=== PATIENT | male | born 1955 | race Two or more races ===

== ENCOUNTER 2021-04-23 08:53 | Outpatient (REF) | payer MEDICARE, MEDICAID, SELFPAY ==
[2021-04-23 13:38] LABS: Basophils Percent Auto 0.3 % (0-2); Eosinophils Absolute Auto 0.2 X10*3/uL (0.0-0.4); Eosinophils Percent Auto 1.5 % (0-4); Hematocrit 45.5 % (42.0-52.0); Hemoglobin 14.7 g/dl (14.0-18.0); Imm Gran Abs Auto 0.03 X10*3/uL (0.00-0.03); Imm Gran Pct Auto 0.3 % (0.0-0.4); Lymphocytes Absolute Auto 2.8 X10*3/uL (1.2-4.9); Lymphocytes Percent Auto 23.9 % (20-40); MANUAL DIFF FLAG SCAN; Mean Corpuscular HGB Conc 32.3 g/dl (31.0-36.0); Mean Corpuscular Hemoglobin 27.8 pg (27.0-33.0); Monocytes Absolute Auto 0.9 X10*3/uL (0.1-1.2); Monocytes Percent Auto 7.3 % (2-11); Neutrophils Absolute Auto 7.9 x10*3/uL (2.0-8.3); Neutrophils Percent Auto 66.7 % (45-73); PLT CLUMP 1; Red Blood Count 5.29 X10*6/uL (4.60-5.80); Red Cell Distribution Width 13.1 % (11.0-16.0); SCAN SMEAR FLAG 1; White Blood Count 11.8 X10*3/uL (4.8-10.8)
[2021-04-23 13:50] LABS: Alanine Aminotransferase 13 U/L (0-40); Albumin Level 3.9 g/dL (3.5-5.0); Alkaline Phosphatase 120 U/L (39-117); Anion Gap 14 (12-20); Aspartate Amino Transferase 15 U/L (5-37); Bilirubin Total 0.6 mg/dL (0.0-1.0); Blood Urea Nitrogen 15 mg/dL (9-16); Calcium 9.5 mg/dL (8.4-10.2); Carbon Dioxide 27 mmol/L (22-29); Chloride 106 mmol/L (96-108); Cholesterol 189 mg/dL; Estimated Glomerular Filt Rate > 60; Glucose Fasting 100 mg/dL (60-99); HDL Cholesterol 38 mg/dL; LDL Cholesterol Calculated 123 mg/dl; Potassium 4.5 mmol/L (3.3-5.1); Sodium 142 mmol/L (135-145); Total Protein 7.6 g/dL (6.5-8.0); Triglycerides 143 mg/dL
[2021-04-23 14:02] LABS: Estimated Average Glucose 126 mg/dL
[2021-04-23 14:05] LABS: SLIDE REVIEW VERIFIED
[2021-04-23 14:13] LABS: Prostate Specific Antigen Scr 1.97 ng/mL (<0.05-4.0); TSH reflex Free T4 1.24 uIU/mL (0.32-4.0)
[2021-04-23 14:15] LABS: Amphetamine Screen Urine Not Detected (Not Detect)
[2021-04-23 14:18] LABS: Creatinine Urine 231.15 mg/dL; Microalbum/Creatinine Ratio Ur 33.7 ug/mg cr
[2021-04-23 14:33] LABS: Folate 15.2 ng/mL (> or = 4.0); Vitamin B12 235 pg/mL (200-900)
[2021-04-23 18:15] LABS: Amphetamine Screen Urine Not Detected (Not Detect); Barbiturates, Urine Not Detected (Not Detect); Benzodiazepines Screen Urine Not Detected (Not Detect); Cannabinoid Screen Urine POSITIVE (Not Detect); Cocaine Screen Urine Not Detected (Not Detect); Fentanyl, urine Not Detected (Not Detect); Opiate Screen Urine Not Detected (Not Detect); Phencyclidine Screen Urine Not Detected (Not Detect)
[2021-04-28 22:56] LABS: Vitamin D 25-OH, D2 <4 ng/mL; Vitamin D 25-OH, D3 13 ng/mL; Vitamin D 25-OH, Total 13 ng/mL (30-100)
[2021-05-01 07:44] LABS: Hydromorphone, Ur NEGATIVE; Morphine, Ur NEGATIVE; Oxycodone GC/MS Note NEGATIVE; Oxymorphone, Ur NEGATIVE
[2021-05-01 07:45] LABS: Alphahydroxymidazolam,GCMS Ur NEGATIVE; Alphahydroxytriazolam, GCMS Ur NEGATIVE; Alprazolam, GCMS Urine NEGATIVE; Aminoclonazepam, GCMS Urine NEGATIVE; Flurazepam Metabolite,GCMS Ur NEGATIVE; Lorazepam GCMS Urine NEGATIVE; Nordiazepam, GCMS Urine NEGATIVE; Norhydrocodone, Ur NEGATIVE; Noroxycodone, Ur NEGATIVE; Oxazepam, GCMS Urine NEGATIVE; Temazepam, GCMS Urine NEGATIVE
[2021-05-02 07:12] LABS: Codeine, Ur NEGATIVE; Hydrocodone, Ur NEGATIVE; Oxycodone, Ur NEGATIVE
== END 2021-04-23 08:54 | disposition home or self-care (01) ==
LOC: HO.LAB 08:53
PROVIDERS: Visit Provider Nurse Practitioner Acute Care
DX: F11.90 Opioid use, unspecified, uncomplicated (principal); I10 Essential (primary) hypertension; E66.9 Obesity, unspecified; F41.9 Anxiety disorder, unspecified
CPT/HCPCS: 80053; 80061; 80307; 80346; 80364; 80365; 82043; 82306; 82607; 82746; 83036; 84153; 84443; 85025

== ENCOUNTER 2021-04-23 14:18 | Emergency (ER) | payer MEDICARE, MEDICAID, SELFPAY ==
--- NOTE | ~2021-04-23 | CT_ITS ---
EXAMINATION: CT HEAD WITHOUT CONTRAST CLINICAL INFORMATION: Hypertension. COMPARISON: No relevant prior imaging. TECHNIQUE: Contiguous axial imaging was performed from the skull base to vertex without intravenous administration of contrast. This CT examination was performed using dose optimization techniques as appropriate, variously including the following: *Automated exposure control *Adjustment of mA and/or kV according to patient size (this includes techniques or standardized protocols for targeted exams where dose is matched to indication/reason for exam; i.e. extremities or head) *Use of iterative reconstruction technique DLP: 684 mGy-cm FINDINGS: There is no acute intracranial hemorrhage or abnormal extra-axial collection. No intracranial mass effect or midline shift. Lateral and third ventricles are normal. No hydrocephalus. Singh-white matter differentiation is preserved and there is no evidence of acute territorial infarct. The calvarium and skull base are intact. The left mastoid air cells and middle ear cavity are completely opacified. No active paranasal sinus disease. The patient's right vitreous chamber is hyperdense indicating likelihood of a prior silicone oil injection. CT/CT head/brain wo con IMPRESSION: Unremarkable examination in that there is no evidence of acute territorial infarct or hemorrhage. No intracranial mass effect or hydrocephalus.
[2021-04-23 14:22] VITALS: BP 154/109; PULSE 103; RESP 18; TEMP 36.8; O2SAT 96; BMI 42.9
--- NOTE | 2021-04-23 17:22 | ECG_ITS ---
Test Reason : HTN Blood Pressure : / mmHG Vent. Rate : 082 BPM Atrial Rate : 082 BPM P-R Int : 190 ms QRS Dur : 102 ms QT Int : 364 ms P-R-T Axes : 038 -06 021 degrees QTc Int : 425 ms Normal sinus rhythm Normal ECG No previous ECGs available Referred By: Bety Chirinos Electronically Signed By:MARK CALLE MD
[2021-04-23 17:30] VITALS: BP 181/107; PULSE 81; RESP 18; TEMP 37.1; O2SAT 95
[2021-04-23] MEDS: lisinopriL 20 MG TABLET PO (17:36)
--- NOTE | 2021-04-23 17:38 | PC.NURSE ---
Addendum entered by Jazlyn Vergara 04/23/21 17:49: No unilateral deficits noted. Original Note: Patient is alert and oriented x3, pupils equal in size 3 mm, reactive to accommodation. Pt reports headache improving-04/23 at present. BP 181/107-Lisinopril 20 mg administered with water-pt denies issues swallowing.
--- NOTE | 2021-04-23 17:39 | ED_ITS ---
HPI - General Adult General Chief complaint: General Medical Stated complaint: high blood pressure Time Seen by Provider: 04/23/21 17:15 Source: patient Mode of arrival: ambulatory Limitations: no limitations History of Present Illness HPI narrative: 65-year-old male with a history of hypertension, osteoarthritis, depression, BPH, macular degeneration bilateral eyes (R>L), obesity, here with reports of abnormal blood pressure. Patient tells me that for the last 2 months he has not been on his lisinopril 20 mg. He ran out of his medication and did not have a primary care doctor to refill his blood pressure medicine. He was seen today by a primary care doctor for initial visit and was noted to have blood pressure of 180/100 and was referred into the emergency department for further evaluation due to reports of headache and vision changes. Patient denies any chest pain, shortness of breath, vomiting, dizziness. Patient tells me that he has had intermittent headaches over the last few months. He tells me that he does have bilateral vision loss which he has had for greater than 2 years. Patient tells me that he has bilateral macular degeneration in both eyes. 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 He does not like his vision is worse in the last 1-2 months. Related Data Home Medications Medication Instructions Recorded Confirmed acetaminophen 325 mg capsule 650 mg PO Q6H PRN 04/23/21 Previous Rx's Medication Instructions Recorded atropine 1 % eye drops 1 drp PO DAILY #5 ml 04/23/21 citalopram 40 mg tablet 40 mg PO DAILY #90 tab 04/23/21 lisinopril 20 mg tablet 20 mg PO DAILY #90 tab 04/23/21 prednisolone acetate 1 % eye 1 drp OPHTHALMIC (EYE) Q1H #5 ml 04/23/21 drops,suspension tamsulosin 0.4 mg capsule 0.4 mg PO BEDTIME #90 cap 04/23/21 tramadol 50 mg tablet 25 mg PO DAILY PRN #14 tab 04/23/21 Allergies Allergy/AdvReac Type Severity Reaction Status Date / Time No Known Allergies Allergy Verified 04/23/21 14:21 Review of Systems Review of Systems: Yes all other systems are reviewed and are negative Constitutional: Constitutional: Reports no additional constitutional complaints, Denies body ache(s), Denies chills, Denies fever(s), Reports headache(s) and Denies weakness Eyes: Eyes: Reports no additional eye complaints, Reports blurry vision and Denies change in vision ENT: Reports system reviewed and no additional complaints, except as documented, Denies dizziness, Reports headache(s), Denies nasal congestion, Denies nasal discharge and Denies neck pain Cardiovascular: Cardiovascular: Reports no additional cardiovascular complaints, Denies chest pain, Denies leg edema and Denies dyspnea Respiratory: Respiratory: Reports no additional respiratory complaints, Denies cough and Denies dyspnea Gastrointestinal: Gastrointestinal: Reports no additional gastrointestinal complaints, Denies abdominal pain, Denies diarrhea, Denies nausea and Denies vomiting Genitourinary: Genitourinary: Denies urinary incontinence Musculoskeletal: Musculoskeletal: Reports no additional musculoskeletal complaints, Denies back pain, Denies arthralgias, Denies joint swelling, Denies neck pain, Denies numbness and Denies tingling Integumentary/Breasts: Skin/Breast: Reports system reviewed and no additional complaints, except as docu and Denies rash Neurologic: Reports system reviewed and no additional complaints, except as documented, Denies dizziness, Reports headache(s), Denies numbness, Denies tingling and Denies weakness PMFSH Past Medical History Attestation statement: The following information was validated with the patient. Source: old records reviewed and nursing notes reviewed Medical History Arthritis of right knee BPH (benign prostatic hyperplasia) Herniated lumbar disc without myelopathy Hypertension Macular degeneration Major depression, recurrent Surgical History History of retinal detachment Family History Family History Mother No problems noted. Father No problems noted. Social History Social History Housing: Apartment Patient Tobacco Use Status: Former Tobacco user Tobacco use type: Cigarette e-Cigarette/Vaping Use: Never Used Second Hand Smoke Exposure: No Advance Directives: No Advance Directives Information Provided: No service: No Current occupational status: retired Cognitive needs: No Hearing needs: No Vision needs: No Physical Exam ED Vital Signs: Vital Signs - 24 hr 04/23/21 14:22 04/23/21 17:30 04/23/21 19:10 Temperature 98.3 F 98.7 F Pulse Rate 103 H 81 80 Respiratory Rate 18 18 20 Blood Pressure 154/109 H 181/107 H 175/99 H Pulse Oximetry 96 95 95 BMI result Body Mass Index 42.9 Const General: cooperative, healthy appearing, comfortable and no acute distress Orientation/consciousness: patient oriented x3 Limitations: no limitations HENMT Head: Yes normal to inspection Ears: hearing grossly normal bilaterally and TM's normal bilaterally General nose exam: Normal external nose present Face and sinus: Yes normal facial exam Mouth: Normal oral and palatal mucosa present Throat: Yes posterior oropharynx normal and Yes tonsils normal Eyes Other: Right eye dilated-nonreactive pupil with vision loss Left eye normal pupil 3mm reactive General: appearance normal, both eyes and all related structures Neck Neck: Yes normal visual inspection, Yes full ROM, Yes no lymphadenopathy and Yes no meningeal signs Chest Chest palpation & inspection: normal inspection of the chest Resp Effort & Inspection: normal respiratory effort Auscultation: clear to auscultation bilaterally Cardio Rate: regular rate Rhythm: regular rhythm Peripheral pulses: Peripheral pulses 2+ throughout GI Inspection: Yes normal to inspection Palpation (GI): Soft to palpation and nontender General: Yes no CVA tenderness Back/Spine/Pelvis Back: no CVA tenderness Thoracic/Lumbar Spine: thoracic and lumbar spine normal to inspection Skin General skin exam: no rashes or lesions noted Neuro General: patient oriented x3, moves all extremities and no meningeal signs Cranial nerves: Yes CN's II-XII intact bilaterally, Yes Bilaterally intact EOM present, Yes Nystagmus not present, Yes Normal facial strength present, Yes Midline tongue present and Yes Normal gag reflex present Cognition (Neuro): normal cognition Gait exam (Neuro): Normal gait present Motor exam (neuro): 5/5 motor strength present throughout Sensory Exam: Normal double simultaneous stimulation for sensation Extrem General: Yes normal to inspection, Yes no pedal edema and Yes no calf tenderness Course Course Course Narrative: 65-year-old male with a known history of high blood pressure noncompliant with medications for greater than 2 months presents today from primary care office with concern for symptomatic hypertension. Patient has a normal neurological exam. He does tell me that he has vision loss in both of his eyes secondary to underlying macular degeneration, retinal detachment of the right eye and history of tuberculosis in the right eye. He tells me that his vision is at his baseline and he has had new changes in his vision and greater than 2 years. He does report intermittent headaches with no associated vomiting, dizziness, behavior change. On arrival the patient is hypertensive 180/100. He had screening labs done this morning by his primary care doctor which are available to for review and show normal renal function, additional CBC, thyroid panel, cholesterol panel. Patient has no reports of chest pain or shortness of breath so I do not feel like it troponin is needed. His EKG is normal sinus rhythm. Due to concern for symptomatic hypertension will check CT head to rule out intracranial hemorrhage. Will give patient has his dose of lisinopril and reassess his blood pressure 2023-BP 162/91. CT head shows no acute finding. EKG shows normal sinus rhythm in with no ischemic changes. Patient feels well. Recommend that he start his lisinopril tomorrow. This was already sent to the pharmacy by his primary care doctor. Reviewed worrisome signs and symptoms of when to return to the em ergency department. Comfortable discharge home. Medical Decision Making Medical Records Medical records reviewed: Yes I reviewed the patient's medical records. Lab Data Lab results reviewed: Yes I reviewed the patient's lab results. Imaging Data CT scan - head: Attestation: I personally reviewed and interpreted this imaging study as follows: Radiologist's impression: FINDINGS: There is no acute intracranial hemorrhage or abnormal extra-axial collection. No intracranial mass effect or midline shift. Lateral and third ventricles are normal. No hydrocephalus. Singh-white matter differentiation is preserved and there is no evidence of acute territorial infarct. The calvarium and skull base are intact. The left mastoid air cells and middle ear cavity are completely opacified. No active paranasal sinus disease. The patient's right vitreous chamber is hyperdense indicating likelihood of a prior silicone oil injection. ? CT/CT head/brain wo con IMPRESSION: Unremarkable examination in that there is no evidence of acute territorial infarct or hemorrhage. No intracranial mass effect or hydrocephalus. ECG Data Attestation: I personally reviewed and interpreted this ECG as follows: Interpretation: Normal sinus rhythm with rate 82, normal PA, normal QRS, normal QT Discharge Plan Discharge Clinical Impression: Hypertension Patient Disposition: Home, Self-Care Instructions: Hypertension (ED) Additional Instructions: Start taking your blood pressure medications Follow a low-sodium diet Limit caffeine intake Follow-up with your marketing project specialist in regards to your eye complaints Follow-up with primary care doctor for repeat blood pressure in 1 week Prescriptions: No Action acetaminophen 325 mg capsule 650 mg PO Q6H PRN0RF atropine 1 % drops 1 drp PO DAILY Qty: 5 0RF prednisolone acetate 1 % drops,suspension 1 drp ophthalmic (eye) Q1H Qty: 5 0RF lisinopril 20 mg tablet 20 mg PO DAILY Qty: 90 2RF citalopram 40 mg tablet 40 mg PO DAILY Qty: 90 2RF tamsulosin 0.4 mg capsule 0.4 mg PO BEDTIME Qty: 90 2RF tramadol 50 mg tablet 25 mg PO DAILY PRN (Reason: pain) Qty: 14 0RF Referrals: Charlie Becerra FNP-C [Primary Care Provider] - 1 week (for repeat blood pressure ) Interventions: ED Discharge Assessment Last Done: 04/23/21 21:08 Discharge Date/Time: 04/23/21 21:10
[2021-04-23 19:10] VITALS: BP 175/99; PULSE 80; RESP 20; O2SAT 95
== END 2021-04-23 21:10 | disposition home or self-care (01) ==
PROVIDERS: Emergency Provider Emergency Medicine Emergency Medical Services; PCP Nurse Practitioner Family
DX: I10 Essential (primary) hypertension (principal); H35.30 Unspecified macular degeneration; Z91.14 Patient's other noncompliance with medication regimen; Z12.5 Encounter for screening for malignant neoplasm of prostate
CPT/HCPCS: 70450; 80053; 80061; 80307; 80346; 80364; 80365; 82043; 82306; 82607; 82746; 83036; 84153; 84443; 85025; 93005; 99284

== ENCOUNTER 2022-05-28 10:02 | Outpatient (REF) | payer MEDICARE, MEDICAID, SELFPAY ==
[2022-05-28 10:16] LABS: MANUAL DIFF FLAG NO
[2022-05-28 10:54] LABS: Basophils Percent Auto 0.4 % (0-2); Eosinophils Absolute Auto 0.2 X10*3/uL (0.0-0.4); Eosinophils Percent Auto 1.9 % (0-4); Hematocrit 43.8 % (42.0-52.0); Hemoglobin 14.2 g/dl (14.0-18.0); Imm Gran Abs Auto 0.04 X10*3/uL (0.00-0.03); Imm Gran Pct Auto 0.4 % (0.0-0.4); Lymphocytes Absolute Auto 2.6 X10*3/uL (1.2-4.9); Lymphocytes Percent Auto 25.4 % (20-40); Mean Corpuscular HGB Conc 32.4 g/dl (31.0-36.0); Mean Corpuscular Hemoglobin 27.7 pg (27.0-33.0); Mean Corpuscular Volume 85.4 fL (80.0-98.0); Mean Platelet Volume 9.8 fL (9.4-12.4); Monocytes Absolute Auto 0.9 X10*3/uL (0.1-1.2); Monocytes Percent Auto 8.9 % (2-11); Neutrophils Absolute Auto 6.5 x10*3/uL (2.0-8.3); Platelet Count 306 X10*3/uL (160-400); Red Blood Count 5.13 X10*6/uL (4.60-5.80); Red Cell Distribution Width 13.1 % (11.0-16.0); White Blood Count 10.3 X10*3/uL (4.8-10.8)
[2022-05-28 12:00] LABS: Alanine Aminotransferase 12 U/L (0-40); Albumin Level 3.9 g/dL (3.5-5.0); Alkaline Phosphatase 110 U/L (39-117); Anion Gap 13 (12-20); Aspartate Amino Transferase 11 U/L (5-37); Bilirubin Total 0.5 mg/dL (0.0-1.0); Blood Urea Nitrogen 19 mg/dL (9-16); Calcium 8.9 mg/dL (8.4-10.2); Carbon Dioxide 27 mmol/L (22-29); Chloride 108 mmol/L (96-108); Cholesterol 181 mg/dL; Estimated Glomerular Filt Rate > 60; Glucose Fasting 106 mg/dL (60-99); HDL Cholesterol 32 mg/dL; LDL Cholesterol Calculated 119 mg/dl; Potassium 4.6 mmol/L (3.3-5.1); Sodium 143 mmol/L (135-145); Total Protein 7.2 g/dL (6.5-8.0); Triglycerides 150 mg/dL
[2022-05-28 12:09] LABS: Folate 11.3 ng/mL (> or = 4.0); TSH reflex Free T4 1.49 uIU/mL (0.32-4.0); Vitamin B12 287 pg/mL (200-900)
== END 2022-05-28 10:03 | disposition home or self-care (01) ==
LOC: HO.LAB 10:02
PROVIDERS: PCP Nurse Practitioner Family; Visit Provider Nurse Practitioner Family
DX: I10 Essential (primary) hypertension (principal); E55.9 Vitamin D deficiency, unspecified
CPT/HCPCS: 36415; 80053; 80061; 82306; 82607; 82746; 84443; 85025

== ENCOUNTER 2022-12-01 09:09 | Outpatient (AMB) | payer MEDICARE, MEDICAID, SELFPAY ==
[2022-12-01 09:10] VITALS: BP 168/96; PULSE 92; O2SAT 97; BMI 39.4
--- NOTE | 2022-12-01 09:10 | AM.OFFVISMDC ---
Intake Vital Signs 12/01/22 09:10 12/01/22 09:54 Height 5 ft 4 in Weight 229 lb 4.492 oz BMI 39.4 BP 168/96 H 160/100 H Blood Pressure Location Rt brachial Lt brachial Position Sitting Sitting Pulse 92 Pulse Source Pulse Oximeter Temp Source Skin Pulse Oximetry (%) 97 Oxygen Delivery Method Room Air Intake Visit Reasons: awv Intake Note: Patient is here for an Annual Wellness Visit. Allergies No Known Allergies Allergy (Verified 12/01/22 09:35) Medication List - Last Reconciled 12/01/22 by [facility] Valentin acetaminophen 650 mg PO Q6H PRN cholecalciferol (vitamin D3) 50 mcg PO DAILY citalopram 40 mg PO DAILY hydroxyzine HCl 10 mg PO BEDTIME PRN lisinopril 20 mg PO DAILY prednisolone acetate 1% 1 drp ophthalmic (eye) Q1H tamsulosin 0.4 mg PO BEDTIME tramadol 25 mg (1/2 x 50 mg) PO DAILY PRN Fall Risk Assessment Fall risk assessment: No Falls in past year Date Fall Risk Assessed: 05/28/22 HPI awv HPI Details Patient is a 67-year-old male who presents today for initial wellness visit. Today we discussed patient's need diabetes screening, tetanus and pneumonia vaccines, prostate cancer screening. Patient reports that he did have colonoscopy in 2019 which was negative per patient in [place], [place] - will request records, and he did receive a call for repeat colonoscopy although patient moved to this area, will refer for repeat colonoscopy in [place]. [place] of care was reviewed with the patient and his daughter who helps with [place] interpretation and they were provided with screening schedule. End of life planning was discussed with the patient and they were provided with healthcare proxy and MOLST forms. In addition, patient reports ongoing right knee pain, he does take tramadol 25 mg daily as needed and would like refill for this, he reports mild improvement in pain with tramadol, he also takes [id number] Tylenol with some improvement, patient would like to be seen by Orthopedic provider, will refer. Reports in the past he was diagnosed with arthritis of his right knee. Patient also interested in counseling referral for his mental health. Patient denies shortness of breath or chest pain. [facility] Medical History (Updated 12/01/22 @ 13:19 by [facility] Valentin) Morbid obesity with BMI of 45.0-49.9, adult Hypertensive emergency Encounter to establish care Herniated lumbar disc without myelopathy Arthritis of right knee BPH (benign prostatic hyperplasia) Major depression, recurrent Hypertension Macular degeneration Surgical History (Updated 12/01/22 @ 13:17 by [facility] Valentin) History of colonoscopy History of retinal detachment Family History Mother No problems noted. Father No problems noted. Social History Housing: Apartment Patient Tobacco Use Status: Former Tobacco user Tobacco use type: Cigarette e-Cigarette/Vaping Use: Never Used Second Hand Smoke Exposure: No service: No Current occupational status: retired Cognitive needs: Yes Hearing needs: Yes Vision needs: Yes Questionnaire Medicare Wellness Checkup What is your age?: 65-69 (67) What gender do you identify with?: male During the past 4 weeks, how much have you been bothered by emotional problems such as feeling anxious, depressed, irritable, sad or downhearted, and blue?: slightly During the past 4 weeks, has your physical & emotional health limited your social activities with family, friends, neighbors, or groups?: moderately During the past 4 weeks, how much bodily pain have you generally had?: severe pain During the past 4 weeks, was someone available to help you if you needed & wanted help?: yes, as much as I wanted During the past 4 weeks, what was the hardest physical activity you could do for at least 2 minutes?: very heavy Can you get to places out of walking distance without help? (For eg., can you travel alone on buses, taxis or drive your car?): No Can you go shopping for groceries or clothes without someone's help?: No Can you prepare your own meals?: No Can you do your housework without help?: No Because of any health problems, do you need the help of another person with your personal care needs such as eating, bathing, dressing or getting around the house?: Yes Can you handle your own money without help?: Yes During the past 4 weeks, how would you rate your health in general?: fair During the past 4 weeks how have things been going for you?: very bad; could hardly be worse Are you having difficulties driving your car?: not applicable, I don't use a car Do you always fasten your seat belt when you are in a car?: yes, usually During past 4 weeks, have you been bothered by the following: never: Sexual problems?, Trouble eating well?, Teeth or denture problems?, Problems using the telephone? and Tiredness or fatigue? and sometimes: Falling or dizzy when standing up Have you fallen 2 or more times in the past year?: No Are you afraid of falling?: Yes Are you a smoker?: no During the past 4 weeks, how many drinks of wine, beer, or other alcoholic beverages did you have?: no alcohol at all Do you exercise for about 20 minutes 3 or more times a week?: no, I usually do not exercise this much Have you been given information to help with the following?: no: Hazards in your house that might hurt you? and no: Keeping track of your medications? How often do you have trouble taking medicines the way you have been told to take them?: I always take medicine as prescribed How confident are you that you can control & manage most of your health problems?: not very confident What is your race?: or origin or descent Mini Mental State Exam (MMSE) Orientation What is the (year) (season) (date) (day) (month)?: year, season, date, day and month Score Score: 5 Activity of Daily Living Bathing - sponge bath, tub bath or shower: receives help in bathing only one body part (such as back or leg) Dressing - getting clothes from closets & drawers, including inner/outer garments & fasteners.: gets clothes & gets dressed without help, except for help tying shoes Toileting - going to the 'toilet room' for urine/bowel elimination & cleaning self/arranging clothes: goes to toilet room, cleans self, arranges clothes without help Transfer: moves in & out of bed or chair with help Continence: supervision helps urination/bowel control; catheter use; incontinent Feeding: feeds self without help Total Score: 1 Information obtained from: patient Using telephone: needs assistance Traveling: dependent Shopping: dependent Preparing meals: dependent Housework: dependent Taking medicine: dependent Managing money: dependent PHQ-9 Over the last 2 weeks, how often have you been bothered by any of the following problems? 1. Little interest or pleasure in doing things: several days 2. Feeling down, depressed, or hopeless: more than half the days 3. Trouble falling or staying asleep, or sleeping too much: nearly every day 4. Feeling tired or having little energy: nearly every day 5. Poor appetite or overeating: more than half the days 6. Feeling bad about yourself - or that you are a failure or have let yourself or your family down: more than half the days 7. Trouble concentrating on things, such as reading the newspaper or watching television: nearly every day 8. Moving or speaking so slowly that other people could have noticed. Or the opposite - being so fidgety or restless that you have been moving around a lot more than usual: not at all 9. Thoughts that you would be better off or of hurting yourself in some way: not at all Total score: 16 Depression Screening Interpretation: Positive Depression Screening Follow-up: Community Mental Health Worker F/U Depression Screening Done: Yes 60247 - PHQ-9 Billing: Yes Source: Developed by Drs. Jam Odell, Barbara Tim, Home Nunn and colleagues, with an educational harini from [employer]. SHANE-7 AMB Questionnaire SHANE-7 Date SHANE - 7 assessed: 05/28/22 Feeling nervous, anxious, or on edge: 1 = Several days Not being able to stop or control worryin = Several days Worrying too much about different things: 1 = Several days Trouble relaxin = Not at all Being so restless that it is hard to sit still: 0 = Not at all Becoming easily annoyed or irritable: 0 = Not at all Feeling afraid as if something awful might happen: 0 = Not at all Total SHANE-7 score (0-4 normal; 5-9 mild; 10-14 moderate; 15-21 severe): 3 Source: Developed by Drs. Jam Odell, Home Bojorquez and colleagues, with an educational harini from [employer]. SHANE-7 Assessment Billing SHANE-7 Assessment Tool: SHANE-7 Assessment 94217 AUDIT C Alcohol Use Questionnaire (AUDIT-C) 1. How often do you have a drink containing alcohol?: Monthly or less 2. How many drinks containing alcohol do you have on a typical day when you are drinking?: 1 or 2 3. How often do you have six or more drinks on one occasion?: Never Total Score: 1 Score Reviewed/Action Taken: Yes (reviewed, no action needed at this time) Thrive Questionnaire Date Thrive assessed: 05/28/22 I am a: Patient What is your living situation today?: I have a steady place to live Within the past 12 months, did the food you bought not last and you didn't have the money to get more?: Never true Within the past 12 months, did you worry whether your food would run out before you got money to buy more?: Never true Currently or been in a relationship where the following occur: no concerns reported Review of Systems Musc Reports as per HPI Physical Exam Vital Signs: Last Vital Signs Pulse 92 12/01/22 09:10 BP 160/100 H 12/01/22 09:54 Pulse Ox 97 12/01/22 09:10 Oxygen Delivery Method Room Air 12/01/22 09:10 BMI result Body Mass Index 39.4 Const General: cooperative and no acute distress Orientation/consciousness: patient oriented x3 HEENT Other: Whisper test: fail Resp Auscultation: clear to auscultation bilaterally Cardio Rate: regular rate Rhythm: regular rhythm Heart sounds: S1 normal heart sound present and S2 normal heart sound present GI Auscultation: normal bowel sounds Neuro Other: Balance: Normal - ambulates with a cane Get up and walk: unable to Romberg: negative Tandem gait: unable to General: patient oriented x3 Immunizations pneumoc 20-nora conj-dip cr(PF) 0.5 mL IM syringe Performing Provider: [facility] Valentin Performing Location: [facility] Administered by: BRITTANI Warner on 12/01/22 10:15 Dose Route Admin Location Dispensed Lot Number Expiration Date [facility] Reclamation Kettle Tender 0.5 mL IM Right Deltoid 0.5 mL [id number] 08/15/23 6418-1799-79 [employer] VIS Given Date VIS Provided VIS Publication Date 12/01/22 Single Vaccine 21 Eligibility Eligibility Date Funding Source Not C Eligible 12/01/22 Private tetanus-diphtheria toxoids-Td 2 Lf unit-2 Lf unit/0.5 mL IM suspension Performing Provider: [facility] Valentin [facility] Administered by: BRITTANI Warner on 12/01/22 10:15 Dose Route Admin Location Dispensed Lot Number Expiration Date [employer] Reclamation Kettle Tender 0.5 mL IM Left Deltoid 0.5 mL [id number] 06/20/23 [address]-8 [employer] VIS Given Date VIS Provided VIS Publication Date 12/01/22 Single Vaccine 20 Eligibility Eligibility Date Funding Source Not VFC Eligible 12/01/22 State funds Assessment & Plan Assessment & Plan (1) Screening for colon cancer: Code(s): Z12.11 - Encounter for screening for malignant neoplasm of colon (2) Screening for prostate cancer: Code(s): Z12.5 - Encounter for screening for malignant neoplasm of prostate (3) Low vitamin D level: Code(s): R79.89 - Other specified abnormal findings of blood chemistry Plan: Continue vitamin D3 50 mcg daily (4) Elevated fasting glucose: Code(s): R73.01 - Impaired fasting glucose Plan: A1c ordered (5) Legally blind: Code(s): H54.8 - Legal blindness, as defined in [place] Plan: Will follow-up on ophthalmology referral (6) Insomnia: Code(s): G47.00 - Insomnia, unspecified Plan: Reinforced sleep hygiene Patient reports that hydroxyzine was making him very drowsy - he stopped taking hydroxyzine Encouraged patient to try [id number] melatonin p.r.n. at bedtime (7) Arthritis of right knee: Code(s): M17.11 - Unilateral primary osteoarthritis, right knee Plan: On tramadol 25 mg daily p.r.n.-patient reports he only takes tramadol as needed with minimal improvement in pain Interested in orthopedic referral, reports in the past he was told he needs to have surgery although he declined (8) Major depression, recurrent: Code(s): F33.9 - Major depressive disorder, recurrent, unspecified Qualifiers: Active/Remission status: remission status unspecified Qualified Code(s): F33.9 - Major depressive disorder, recurrent, unspecified Plan: Continue citalopram Counseling referral (9) BPH (benign prostatic hyperplasia): Code(s): N40.0 - Benign prostatic hyperplasia without lower urinary tract symptoms Plan: Stable with tamsulosin at bedtime (10) Hypertension: Code(s): I10 - Essential (primary) hypertension Plan: Goal BP equal or less than 140/90 Blood pressure elevated in the office, patient denies acute symptoms Increase lisinopril to 30 mg daily and take in the morning, patient reports taking lisinopril at bedtime Follow-up with nurse in 2 weeks for BP recheck Monitor blood pressures at home Low-sodium diet and weight loss Signs and symptoms reviewed when to notify provider or go to the emergency department (11) Obesity (BMI 30-39.9): Code(s): E66.9 - Obesity, unspecified Plan: Healthy food choices and exercise as tolerated (12) Medicare annual wellness visit, initial: Code(s): Z00.00 - Encounter for general adult medical examination without abnormal findings Plan Follow-up in 3 months or sooner as needed Orders: Orders Pneumococcal 20 Immunization Today Z23 - Encounter for immunization Hemoglobin A1c Today R73.01 - Impaired fasting glucose Prostate Specific Antigen Today Z12.5 - Encounter for screening for malignant neoplasm of prostate Td State Immunization Today Z23 - Encounter for immunization Referrals Gastroenterology Referral Z12.11 - Encounter for screening for malignant neoplasm of colon Orthopedics Referral M17.11 - Unilateral primary osteoarthritis, right knee Counseling Referral F33.9 - Major depressive disorder, recurrent, unspecified Medications: New blood pressure monitor As directed 1 ea 0RF I10 - Essential (primary) hypertension lisinopril 30 mg PO DAILY 90 tabs 1RF I10 - Essential (primary) hypertension Refilled tramadol 25 mg (1/2 x 50 mg) PO DAILY PRN 14 tabs 0RF pain M17.11 - Unilateral primary osteoarthritis, right knee, M51.26 - Other intervertebral disc displacement, lumbar region Discontinued lisinopril Discontinued Reason: Doctor's Order 20 mg PO DAILY 90 tabs 2RF I10 - Essential (primary) hypertension hydroxyzine HCl Discontinued Reason: Doctor's Order 10 mg PO BEDTIME PRN 14 tabs 0RF insomnia G47.00 - Insomnia, unspecified Quality Reporting (2019) Fall Risk Screening ([facility]) Last assessed Fall Risk: 05/28/22 Fall risk assessment: No Falls in past year Depression/Bipolar (159/160/161/177) PHQ-9: Total score: 16 Coding Level of Care Code Medicare First (G0438) Est Pt Level 3 (24965) Diagnoses Screening for colon cancer Z12.11 Screening for prostate cancer Z12.5 Low vitamin D level R79.89 Elevated fasting glucose R73.01 Legally blind H54.8 Insomnia G47.00 Arthritis of right knee M17.11 Recurrent major depressive disorder, remission status unspecified F33.9 Active/Remission status: remission status unspecified BPH (benign prostatic hyperplasia) N40.0 Hypertension I10 Obesity (BMI 30-39.9) E66.9 Medicare annual wellness visit, initial Z00.00 CPT Codes Advance Care Planning - Time spent: 1-15 minutes, not on file ([id number]) Additional Codes SHANE-7 Assessment Billing - SHANE-7 Assessment Tool: SHANE-7 Assessment 36070 ([id number]) Advance Care Planning Date of discussion: 12/01/22 Who was present: pt, daughter and finance broker Forms completed: None Time spent: 1-15 minutes, not on file Actual minutes spent: 3 Did not discuss due to Cultural/Spiritual beliefs: No
[2022-12-01 09:54] VITALS: BP 160/100
== END 2022-12-01 10:18 | disposition home or self-care (01) ==
PROVIDERS: PCP Nurse Practitioner Family; Visit Provider Nurse Practitioner Family
DX: Z00.00 Encounter for general adult medical examination without abnormal findings (principal); Z12.11 Encounter for screening for malignant neoplasm of colon; F33.9 Major depressive disorder, recurrent, unspecified; Z12.5 Encounter for screening for malignant neoplasm of prostate; R79.89 Other specified abnormal findings of blood chemistry; R73.01 Impaired fasting glucose; N40.0 Benign prostatic hyperplasia without lower urinary tract symptoms; H54.8 Legal blindness, as defined in USA; G47.00 Insomnia, unspecified; M17.11 Unilateral primary osteoarthritis, right knee; I10 Essential (primary) hypertension; E66.9 Obesity, unspecified
CPT/HCPCS: 1124F; 90471; 90677; 90714; G0438

== ENCOUNTER 2022-12-01 10:26 | Outpatient (REF) | payer MEDICARE, MEDICAID, SELFPAY ==
[2022-12-01 11:07] LABS: Estimated Average Glucose 117 mg/dL; Hemoglobin A1c % 5.7 % (<6.0)
[2022-12-01 11:54] LABS: Vitamin D 25-OH Total 18.7 ng/mL (>30)
[2022-12-01 11:55] LABS: Prostate Specific Antigen 2.21 ng/mL (<0.05-4.0)
== END 2022-12-01 10:27 | disposition home or self-care (01) ==
LOC: HO.LAB 10:26
PROVIDERS: PCP Nurse Practitioner Family; Visit Provider Nurse Practitioner Family
DX: R73.01 Impaired fasting glucose (principal); E55.9 Vitamin D deficiency, unspecified; Z12.5 Encounter for screening for malignant neoplasm of prostate
CPT/HCPCS: 36415; 82306; 83036; 84153

== ENCOUNTER 2022-12-07 17:16 | Outpatient (REF) | payer MEDICARE, MEDICAID, SELFPAY | END 2022-12-07 17:17 | disposition home or self-care (01) | LOC: HO.HOSX 17:16 | PROVIDERS: Visit Provider Orthopaedic Surgery | DX: Z13.89 Encounter for screening for other disorder (principal) ==

== ENCOUNTER 2022-12-21 10:11 | Outpatient (REF) | payer MEDICARE, MEDICAID, SELFPAY | END 2022-12-21 10:12 | disposition home or self-care (01) | LOC: HO.HOSX 10:11 | PROVIDERS: Visit Provider Orthopaedic Surgery | DX: Z13.89 Encounter for screening for other disorder (principal) ==

== ENCOUNTER 2023-02-28 08:10 | Outpatient (AMB) | payer MEDICARE, MEDICAID, SELFPAY ==
--- NOTE | 2023-02-28 08:38 | A.OFFPC_ITS ---
Vital Signs 02/28/23 08:40 Height 5 ft 3 in Weight 223 lb 8 oz BMI 39.6 BP 138/74 Blood Pressure Location Lt brachial Position Sitting Pulse 89 Pulse Source Pulse Oximeter Pulse Oximetry (%) 94 Oxygen Delivery Method Room Air Intake Visit Reasons: Trans. of Care from [facility].-F/U HTN Intake Note: Patient is here today for transfer of care from . Patient is here to follow up on HTN. Art Critic Required: No Box Spring Frame Builder: Present Accompanied by: Daughter Allergies Seasonal Allergies Allergy (Intermediate, Verified 02/28/23 08:46) Runny Nose Tobacco use date assessed: 02/28/23 Fall risk assessment: No Falls in past year Last assessed Fall Risk: 02/28/23 Dental Screening Dental Screen Date: 02/28/23 Did you have a dental visit in the last 12 months?: No Did you have a dental problem in the last 6 months where you did not have access to dental care?: No Was dental information given to patient?: No HPI Trans. of Care from [facility].-F/U HTN HPI Details 67-year-old male presents to the office to discuss his medical conditions. I am assuming his care from today as his previous primary care provider has left the practice. Patient is legally blind due to macular degeneration. He is unable to travel to the retina specialist for frequent injections. He has very poor vision in the right eye on the left eye is also fading. He is legally blind and can not drive. Patient reports that his blood pressures have been elevated at home. His daughter did not bring the blood pressure logs, she reports that the blood pressures are in the 160s systolic range. [facility], [facility] Medical History (Updated 02/28/23 @ 09:23 by Sonny Nielsen MD) Morbid obesity with BMI of 45.0-49.9, adult Hypertensive emergency Encounter to establish care Herniated lumbar disc without myelopathy Arthritis of right knee BPH (benign prostatic hyperplasia) Major depression, recurrent Hypertension Macular degeneration Surgical History History of dental surgery History of colonoscopy History of retinal detachment Family History Mother No problems noted. Father No problems noted. Social History Housing: Apartment Alcohol intake: current Alcohol intake frequency: holidays/special occasions only Patient Tobacco Use Status: Former Tobacco user Tobacco use type: Cigarette e-Cigarette/Vaping Use: Never Used Second Hand Smoke Exposure: No service: No Current occupational status: retired Cognitive needs: Yes (cane) Hearing needs: Yes (hearing aide) Vision needs: Yes Questionnaire PHQ-9 Over the last 2 weeks, how often have you been bothered by any of the following problems? 1. Little interest or pleasure in doing things: not at all 2. Feeling down, depressed, or hopeless: not at all 3. Trouble falling or staying asleep, or sleeping too much: not at all 4. Feeling tired or having little energy: not at all 5. Poor appetite or overeating: not at all 6. Feeling bad about yourself - or that you are a failure or have let yourself or your family down: not at all 7. Trouble concentrating on things, such as reading the newspaper or watching television: not at all 8. Moving or speaking so slowly that other people could have noticed. Or the opposite - being so fidgety or restless that you have been moving around a lot more than usual: not at all 9. Thoughts that you would be better off or of hurting yourself in some way: not at all Total score: 0 Depression Screening Interpretation: Negative Depression Screening Done: Yes Source: Developed by Drs. Jam Odell, Barbara Tim, Home Nunn and colleagues, with an educational harini from [employer]. Thrive Questionnaire Date Thrive assessed: 02/28/23 I am a: Patient What is your living situation today?: I have a steady place to live Within the past 12 months, did the food you bought not last and you didn't have the money to get more?: Never true Within the past 12 months, did you worry whether your food would run out before you got money to buy more?: Never true Do you have trouble paying for medicines?: No Do you have trouble getting transportation to medical appointments?: No Do you have trouble paying your heating and electricity bill?: No Do you have trouble taking care of your child, family member or friend?: No Do you have trouble with day-to-day activities such as bathing, preparing meals, shopping, managing finances, etc.?: No Are you currently unemployed and looking for a job?: No Are you interested in more education?: No Currently or been in a relationship where the following occur: no concerns reported AUDIT C Alcohol Use Questionnaire (AUDIT-C) 1. How often do you have a drink containing alcohol?: Never Total Score: 0 SHANE-7 AMB Questionnaire SHANE-7 Date SHANE - 7 assessed: 02/28/23 Feeling nervous, anxious, or on edge: 1 = Several days Not being able to stop or control worryin = Not at all Worrying too much about different things: 0 = Not at all Trouble relaxin = Not at all Being so restless that it is hard to sit still: 0 = Not at all Becoming easily annoyed or irritable: 0 = Not at all Feeling afraid as if something awful might happen: 0 = Not at all Total SHANE-7 score (0-4 normal; 5-9 mild; 10-14 moderate; 15-21 severe): 1 Source: Developed by Drs. Jam Odell, Barbara Tim, Home Nunn and colleagues, with an educational harini from [employer]. Physical exam (Primary Care) Vital Signs: Last Vital Signs Pulse 89 02/28/23 08:40 BP 138/74 02/28/23 08:40 Pulse Ox 94 02/28/23 08:40 Oxygen Delivery Method Room Air 02/28/23 08:40 Care Plan Goal for BP management: Blood pressure is in range. New medication has been added. BMI result Body Mass Index 39.6 BMI Assessment/Plan discussion: High (1 lb per week weight loss suggested.) BMI High, discussed plan: lifestyle, weight reduction and dietary Tobacco/Smoking Status: Tobacco use Status Tobacco use date assessed 02/28/23 02/28/23 08:53 Patient Tobacco Use Status Former Tobacco user 02/28/23 08:53 Tobacco use type Cigarette 02/28/23 08:53 e-Cigarette/Vaping Use Never Used 02/28/23 08:53 PHQ-9: PHQ-9 Score PHQ-9: Total score 0 02/28/23 08:53 Depression Screening Interpretation: Negative Thrive Assessment: Date of Thrive Assessment Date Thrive assessed 02/28/23 02/28/23 08:53 Currently or been in a relationship where the following occur: no concerns reported Const General: cooperative and healthy appearing Nutritional Appearance: well nourished Orientation/consciousness: patient oriented x3 Limitations: no limitations HENMT Head: Yes normal to inspection Neck Neck: Yes normal visual inspection Chest Chest palpation & inspection: normal palpation of entire chest wall Resp Effort & Inspection: normal respiratory effort Neuro General: patient oriented x3 Office Procedures Flu Questionnaire Does the patient have a severe egg allergy?: No Does the patient have severe life threatening allergies?: No Does the patient have a fever or illness today?: No Has the patient ever had Guillain-Toston Syndrome?: No Has the patient ever had any past reaction to a flu shot?: No Immunizations flu vacc [id number] 6mos up(PF) 60 mcg(15 mcgx4)/0.5 mL IM syringe Performing Provider: Sonny Nielsen MD [facility] Administered by: Tressa Vang CMA on 02/28/23 09:12 Dose Route Admin Location Dispensed Lot Number Expiration Date NDC Tank Carpenter 0.5 mL IM Left Deltoid 0.5 mL [id number] 08/14/23 [id number] [employer]xtra VIS Given Date VIS Provided VIS Publication Date 02/28/23 Single Vaccine 20 Eligibility Eligibility Date Funding Source Not [facility] Eligible 02/28/23 Private Assessment and Plan Assessment & Plan (1) Major depression, recurrent: Code(s): F33.9 - Major depressive disorder, recurrent, unspecified Qualifiers: Active/Remission status: remission status unspecified Qualified Code(s): F33.9 - Major depressive disorder, recurrent, unspecified Plan: This condition is stable. Continue medications at same dosage. (2) Macular degeneration: Code(s): H35.30 - Unspecified macular degeneration Plan: Patient was encouraged to see the compliance assistant at least twice a year. (3) Hypertension: Code(s): I10 - Essential (primary) hypertension Qualifiers: Hypertension type: primary hypertension Plan: Hydrochlorothiazide added to the regimen. Continue to monitor blood pressures. (4) Morbid obesity with BMI of 45.0-49.9, adult: Code(s): E66.01 - Morbid (severe) obesity due to excess calories; Z68.42 - Body mass index [BMI] 45.0-49.9, adult Plan: * Counseling on the importance of diet and exercise done. Hazards of increased weight explained to patient. Patient had a colonoscopy at [facility] in 2020. Old records need to be obtained. Orders: Orders Basic Metabolic Panel Today F33.9 - Major depressive disorder, recurrent, unspecified, H35.30 - Unspecified macular degeneration, I10 - Essential (primary) hypertension Complete Blood Count no Diff Today F33.9 - Major depressive disorder, recurrent, unspecified, H35.30 - Unspecified macular degeneration, I10 - Essential (primary) hypertension Thyroid Stimulating Hormone Today F33.9 - Major depressive disorder, recurrent, unspecified, H35.30 - Unspecified macular degeneration, I10 - Essential (primary) hypertension UA and rflx microscopic Today F33.9 - Major depressive disorder, recurrent, unspecified, H35.30 - Unspecified macular degeneration, I10 - Essential (primary) hypertension Prostate Specific Antigen Scr Today F33.9 - Major depressive disorder, rec urrent, unspecified, H35.30 - Unspecified macular degeneration, I10 - Essential (primary) hypertension Influenza [id number] Immunization Today Z23 - Encounter for immunization Liver Panel Today F33.9 - Major depressive disorder, recurrent, unspecified, H35.30 - Unspecified macular degeneration, I10 - Essential (primary) hypertension Medications: New hydrochlorothiazide 25 mg PO DAILY 90 tabs 1RF Coding Level of Care Code Est Pt Level 4 (70053) Diagnoses Recurrent major depressive disorder, remission status unspecified F33.9 Active/Remission status: remission status unspecified Macular degeneration H35.30 Hypertension I10 Hypertension type: primary hypertension Morbid obesity with BMI of 45.0-49.9, adult E66.01; Z68.42
[2023-02-28 08:40] VITALS: BP 138/74; PULSE 89; O2SAT 94; BMI 39.6
== END 2023-02-28 09:24 | disposition home or self-care (01) ==
PROVIDERS: PCP Internal Medicine; Visit Provider Internal Medicine
DX: F33.9 Major depressive disorder, recurrent, unspecified (principal); E66.01 Morbid (severe) obesity due to excess calories; Z68.42 Body mass index [BMI] 45.0-49.9, adult; Z23 Encounter for immunization; H35.30 Unspecified macular degeneration; I10 Essential (primary) hypertension
CPT/HCPCS: 90471; 90686; 99214

== ENCOUNTER 2023-02-28 09:45 | Outpatient (REF) | payer MEDICARE, MEDICAID, SELFPAY ==
[2023-02-28 11:22] LABS: Hematocrit 44.4 % (42.0-52.0); Hemoglobin 14.8 g/dl (14.0-18.0); Mean Corpuscular HGB Conc 33.3 g/dl (31.0-36.0); Mean Corpuscular Hemoglobin 28.5 pg (27.0-33.0); Mean Corpuscular Volume 85.4 fL (80.0-98.0); Mean Platelet Volume 11.1 fL (9.4-12.4); Platelet Count 198 X10*3/uL (160-400); Red Cell Distribution Width 13.4 % (11.0-16.0); White Blood Count 11.4 X10*3/uL (4.8-10.8)
[2023-02-28 11:30] LABS: Appearance Urine Clear; Color Urine Yellow; Glucose Urine UA Negative (Negative); Leukocyte Esterase Urine Negative (Negative); Nitrite Urine Negative (Negative); PH 5.5 (5.0-9.0); Urine Blood Negative (Negative); Urine Ketones Negative (Negative); Urine Protein Negative (Neg-Trace)
[2023-02-28 12:06] LABS: Prostate Specific Antigen Scr 2.33 ng/mL (<0.05-4.0)
[2023-02-28 12:08] LABS: Alanine Aminotransferase 17 U/L (0-40); Albumin Level 3.9 g/dL (3.5-5.0); Alkaline Phosphatase 108 U/L (39-117); Anion Gap 10 (12-20); Aspartate Amino Transferase 16 U/L (5-37); Bilirubin Direct 0.1 mg/dL (0.0-0.5); Bilirubin Total 0.4 mg/dL (0.0-1.0); Blood Urea Nitrogen 17 mg/dL (9-16); Calcium 9.3 mg/dL (8.4-10.2); Carbon Dioxide 28 mmol/L (22-29); Chloride 106 mmol/L (96-108); Estimated Glomerular Filt Rate > 60; Glucose Random 101 mg/dL (60-115); Potassium 4.2 mmol/L (3.3-5.1); Sodium 140 mmol/L (135-145); Total Protein 7.8 g/dL (6.5-8.0)
== END 2023-02-28 09:46 | disposition home or self-care (01) ==
LOC: HO.LAB 09:45
PROVIDERS: PCP Internal Medicine; Visit Provider Internal Medicine
DX: F33.9 Major depressive disorder, recurrent, unspecified (principal); H35.30 Unspecified macular degeneration; I10 Essential (primary) hypertension
CPT/HCPCS: 36415; 80048; 80076; 81003; 84153; 84443; 85027

== ENCOUNTER 2023-03-18 09:42 | Outpatient (AMB) | payer MEDICARE, MEDICAID, SELFPAY ==
--- NOTE | 2023-03-18 09:47 | A.OFFVIS_ITS ---
Intake Intake Visit Reasons: BPH w/out LUTS Intake Note: New Patient presents for initial visit Urinary Frequency Urology Medications: d/c Tamsulosin x 3 mo ago, patient stated not working Blood Thinner: none PVR: 153ml's Ibm Bpm Developer Required: No Accompanied by: Daughter Allergies Seasonal Allergies Allergy (Intermediate, Verified 03/18/23 10:45) Runny Nose Medication List - Last Reconciled 03/18/23 by RASTA WeaverP- blood pressure monitor As directed hydrochlorothiazide 25 mg PO DAILY lisinopril 30 mg PO DAILY terazosin 5 mg PO BEDTIME 30 days tramadol 25 mg (1/2 x 50 mg) PO DAILY PRN HPI HPI Comments History of Present Illness Details Dc is a very pleasant 67-year-old male patient of Dr. Gonzalez who was accompanied by his daughter at today's office visit. He has a past medical history of morbid obesity, hypertension, arthritis, BPH, depression, and macular degeneration. He presents to the office today as a new patient for ongoing lower urinary tract symptoms. In discussion with the patient today he reports having followed up with a urologist many years ago in [place] and has since been on Flomax. However, has noted more recently to be experiencing increased episodes of nocturia, urinary frequency, urinary dribbling, and incontinence. He reports he has since stopped his Flomax as he did not find this to be helpful. He otherwise denies hematuria, dysuria, foul smelling urine, changes to urinary stream, flank pain, fever, and or chills. In review of patient's chart it appears PSAs are as follows: 05/05--2.0, 12/06--2.2, 03/09--2.3 Discussed at length potential causes for lower urinary tract symptoms patient is experiencing. Discussed obtaining retroperitoneal ultrasound for further assessment evaluation. He does report a history of snoring and feeling fatigued in the morning therefore discussed sleep study for further assessment eval uation. Discussed at length bladder triggers/irritants. Discussed possible near future in office cystoscopy and or urodynamics for further assessment evaluation. He reports utilizing approximately 1-3 adult diapers per day. In office urinalysis results reviewed with the patient today. PVR 153 mL. Discussed causes and affects of incomplete bladder emptying. [facility] Medical History Morbid obesity with BMI of 45.0-49.9, adult Hypertensive emergency Encounter to establish care Herniated lumbar disc without myelopathy Arthritis of right knee BPH (benign prostatic hyperplasia) Major depression, recurrent Hypertension Macular degeneration Surgical History History of dental surgery History of colonoscopy History of retinal detachment Family History Mother No problems noted. Father No problems noted. Social History Housing: Apartment Alcohol intake: current Alcohol intake frequency: holidays/special occasions only Patient Tobacco Use Status: Former Tobacco user Tobacco use type: Cigarette e-Cigarette/Vaping Use: Never Used Second Hand Smoke Exposure: No service: No Current occupational status: retired Cognitive needs: Yes (cane) Hearing needs: Yes (hearing aide) Vision needs: Yes Review of Systems Eyes Reports as per HPI ENT Reports no additional complaints Card Reports as per HPI Resp Reports as per HPI GI Reports no additional complaints Reports as per HPI Musc Reports as per HPI Neuro Reports no additional complaints Psych Reports as per HPI Endo Reports no additional complaints Rafi/Lymph Reports no additional complaints Aller/Immun Reports no additional complaints Physical Exam Const General: cooperative, comfortable, no acute distress, well developed, alert and awake Nutritional Appearance: overweight Orientation/consciousness: patient oriented x3 Limitations: ambulation with cane HEENT Head: Yes normal to inspection, Yes normocephalic and Yes atraumatic Ears: hearing grossly normal bilaterally Eyes Other: Patient reports to be legally blind General: appearance normal, both eyes and all related structures Neck Neck: Yes normal visual inspection and Yes trachea midline Chest Chest palpation & inspection: normal inspection of the chest Resp Effort & Inspection: normal respiratory effort and able to speak in complete sentences Cardio Rate: regular rate GI Inspection: Yes normal to inspection General: Yes no CVA tenderness Back/Spine/Pelvis Back: no CVA tenderness Skin General skin exam: no rashes or lesions noted Neuro General: patient oriented x3 Extrem General: Yes normal to inspection Psych Appearance: grossly normal and well kempt Mental Status: mental status grossly normal Speech and movement: Normal speech and movement present and Clear speech present Affect: normal affect Attitude: cooperative Thought process: Normal thought process present Thought content: Normal thought content present Insight: Fair insight present (Psych) Judgement: Fair judgement present (Psych) Office Procedures Post Void Residual Post Residual Void Post Void Residual (PVR): 153 [id number] Void Residual by ultrasound Results AMB Urinalysis, Automated UA Leukoctes 0 Portia/uL Last Edit by Vanna Calvert on 03/18/23 10:23 UA Nitrite Negative Last Edit by Vanna Calvert on 03/18/23 10:23 UA Urobilinogen 0.2 mg/dL Last Edit by [employer]anie on 03/18/23 10:23 UA Protein 0 mg/dL Last Edit by [employer] on 03/18/23 10:23 UA pH 6.0 Last Edit by Vanna Calvert on 03/18/23 10:23 UA Blood 0 Nic/uL Last Edit by onkeahoracio Calvert on 03/18/23 10:23 UA Specific [place] 1.030 Last Edit by onkeahoracio Calvert on 03/18/23 10:23 UA Ketone Negative Last Edit by onkeahoracio Calvert on 03/18/23 10:23 UA Bilirubin 0 mg/dL Last Edit by [employer] on 03/18/23 10:23 UA Glucose 0 mg/dL Last Edit by [employer] on 03/18/23 10:23 Results Reviewed Results Reviewed: Laboratory Last Values Urine pH (Auto) 6.0 03/18/23 09:56 Specific [place] (Auto) 1.030 03/18/23 09:56 Urine Protein (Auto) 0 mg/dL 03/18/23 09:56 Glucose (UA)(Auto) 0 mg/dL 03/18/23 09:56 Urine Ketones (Auto) Negative 03/18/23 09:56 Urine Blood (Auto) 0 Nic/uL 03/18/23 09:56 Urine Nitrite (Auto) Negative 03/18/23 09:56 Urine Bilirubin (Auto) 0 mg/dL 03/18/23 09:56 Urine Urobilinogen (Auto) 0.2 mg/dL 03/18/23 09:56 Leukocyte Esterase (Auto) 0 Portia/uL 03/18/23 09:56 Assessment & Plan Assessment & Plan (1) Urinary frequency: Code(s): R35.0 - Frequency of micturition (2) Nocturia: Code(s): R35.1 - Nocturia (3) Incomplete bladder emptying: Code(s): R33.9 - Retention of urine, unspecified Plan In office urinalysis results reviewed with the patient today; as noted above. PVR 153 mL. Discussed at length potential causes for lower urinary tract symptoms patient is experiencing. Discussed at length potential causes and affects of incomplete bladder emptying. Will refer for home sleep study for further assessment evaluation. Will obtain retroperitoneal ultrasound for further assessment evaluation. Start terazosin 5 mg at bedtime as discussed and prescribed. Will provide prescription to [facility] for adult diapers Discussed bladder triggers/irritants. Discussed attempting to sit when voiding to assist with incomplete bladder emptying. Discussed possible near future in office cystoscopy and or urodynamics for further assessment evaluation. Follow-up in 1-2 months with imaging to be completed prior; or sooner with any issues, concerns, and or questions. Orders: Orders 2 AMB Post Void Residual by ultrasound Today N40.0 - Benign prostatic hyperplasia without lower urinary tract symptoms RT home sleep study Today R35.1 - Nocturia, R53.83 - Other fatigue AMB Urinalysis Automated Today Z13.9 - Encounter for screening, unspecified US retroperitoneal comp Today R33.9 - Retention of urine, unspecified, R35.0 - Frequency of micturition, R35.1 - Nocturia Medications: New terazosin 5 mg PO BEDTIME 30 days 30 caps 1RF N40.1 - Benign prostatic hyperplasia with lower urinary tract symptoms, R35.0 - Frequency of micturition Patient Instructions: The patient had an opportunity to ask questions regarding the treatment plan. All questions were answered. Physical exam, labs, and imaging were discussed and reviewed in detail. As well as risks, benefits, and discussion of treatment choices. No major barriers to understanding were identified. The patient expressed understanding and agreement with the above treatment plan. The patient was made aware they should contact our office by phone for worsening of their current condition, the appearance of new symptoms, or with any questions or concerns. Compliance is encouraged with any medications and follow up testing that is ordered. It is a privilege to be allowed the opportunity to participate in? your urological care.? Again, if you have any questions or concerns If you have any questions or concerns please do not hesitate to contact me. The office is [phone]. This note is constructed using voice recognition software. While every effort has been made to ensure accuracy asbestos brake lining finisher errors may have been included. Yours sincerely, NHI Weaver-ASHELY Coding Level of Care Code New Pt Level 4 (04412) Diagnoses Urinary frequency R35.0 Nocturia R35.1 Incomplete bladder emptying R33.9 CPT Codes Post Residual Void - PVR CPT Code: 40422-Xzlw Void Residual by ultrasound ([id number])
== END 2023-03-18 10:46 | disposition home or self-care (01) ==
PROVIDERS: PCP Nurse Practitioner Family; Visit Provider Nurse Practitioner Family
DX: R35.0 Frequency of micturition (principal); R35.1 Nocturia; R33.9 Retention of urine, unspecified; Z13.9 Encounter for screening, unspecified
CPT/HCPCS: 99204

== ENCOUNTER → 2023-03-18 09:42 | Outpatient (BNVA) | payer MEDICARE, MEDICAID, SELFPAY | PROVIDERS: PCP Nurse Practitioner Family; Visit Provider Nurse Practitioner Family | DX: R35.0 Frequency of micturition (principal); R35.1 Nocturia; R33.9 Retention of urine, unspecified | CPT/HCPCS: 51798; 81003; 99202 ==

== ENCOUNTER 2023-04-01 09:56 | Outpatient (REF) | payer MEDICARE, MEDICAID, SELFPAY ==
--- NOTE | ~2023-04-01 | US_ITS ---
EXAMINATION: US RETROPERITONEAL COMPLETE (RENAL) CLINICAL INFORMATION: Retention of urine, unspecified. COMPARISON: None available. TECHNIQUE: Real-time imaging of the kidneys and bladder. Limited visualization due to bowel gas. FINDINGS: RIGHT KIDNEY: 9.9 x 4.6 x 5.9 cm (SAG x AP x TRV). No hydronephrosis. No renal calculi. Renal cortical thickness is normal. Limited visualization. LEFT KIDNEY: 13.0 x 5.2 x 5.4 cm (SAG x AP x TRV). No hydronephrosis. No renal calculi. Renal cortical thickness is normal. Limited visualization. BLADDER: Moderately distended. Bilateral ureteral jets are demonstrated. Prevoid bladder volume is 152 mL. Postvoid bladder volume is 0 mL. Prostate volume 46 mL. US/US retroperitoneal comp IMPRESSION: 1. No hydronephrosis. No renal calculi. 2. Prostate volume 46 mL.
== END 2023-04-01 09:57 | disposition home or self-care (01) ==
LOC: HO.US 09:56
PROVIDERS: PCP Nurse Practitioner Family; Visit Provider Nurse Practitioner Family
DX: R33.9 Retention of urine, unspecified (principal); R35.1 Nocturia; R35.0 Frequency of micturition
CPT/HCPCS: 76770

== ENCOUNTER 2023-05-02 10:28 | Outpatient (AMB) | payer MEDICARE, MEDICAID, SELFPAY ==
--- NOTE | 2023-05-02 10:54 | A.OFFVIS_ITS ---
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 Gonzalez who was accompanied by his daughter at today's office visit. He has a past medical history of morbid obesity, hypertension, arthritis, BPH, depression, and macular degeneration. He presents to the office today for follow-up. Of note, patient was seen approximately 6 weeks ago as a new patient for ongoing lower urinary tract symptoms at which time a retroperitoneal ultrasound was ordered for further assessment evaluation. These results reviewed with the patient is daughter today. Bilateral kidneys with no hydronephrosis or calculi. Limited visualization. The bladder is moderately distended. Bilateral ureteral jets are demonstrated. Pre void bladder volume is approximately 150 mL. Postvoid bladder volume is 0 mL. Prostate volume is approximately 45 mL. In discussion with the patient today he reports significant improvement in urinary urgency and frequency with 5 mg of terazosin. He reports feeling terazosin has been more helpful than the Flomax he had trialed with previous urologist in [place]. He otherwise denies hematuria, dy suria, foul smelling urine, changes to urinary stream, flank pain, fever, and or chills. In review of patient's chart it appears PSAs are as follows: 05/05--2.0, 12/06--2.2, 03/09--2.3 He discusses his planned to complete sleep study this week. He also reports to be following up with audiology for his bilateral hearing loss. He In office urinalysis results reviewed with the patient today. PVR 12 mL. Discussed decrease in postvoid residual since last office visit. He does continue to wear 2-3 adult pull-ups per day given decreased mobility in experiencing urinary incontinence at times. Discussed importance of timed voiding to assist with these episodes. He otherwise offers no other issues or concerns at this time. [facility] Medical History Morbid obesity with BMI of 45.0-49.9, adult Hypertensive emergency Encounter to establish care Herniated lumbar disc without myelopathy Arthritis of right knee BPH (benign prostatic hyperplasia) Major depression, recurrent Hypertension Macular degeneration Surgical History History of dental surgery History of colonoscopy History of retinal detachment Family History Mother No problems noted. Father No problems noted. Social History Housing: Apartment Alcohol intake: current Alcohol intake frequency: holidays/special occasions only Patient Tobacco Use Status: Former Tobacco user Tobacco use type: Cigarette e-Cigarette/Vaping Use: Never Used Second Hand Smoke Exposure: No service: No Current occupational status: retired Cognitive needs: Yes (cane) Hearing needs: Yes (hearing aide) Vision needs: Yes Review of Systems Eyes Reports as per HPI ENT Reports no additional complaints Card Reports as per [facility] Resp Reports as per HPI GI Reports no additional complaints Reports as per [facility] Musc Reports as per [facility] Neuro Reports no additional complaints Psych Reports as per HPI Endo Reports no additional complaints Rafi/Lymph Reports no additional complaints Aller/Immun Reports no additional complaints Physical Exam Const General: cooperative, comfortable, no acute distress, well developed, alert and awake Nutritional Appearance: overweight Orientation/consciousness: patient oriented x3 Limitations: ambulation with cane HEENT Head: Yes normal to inspection, Yes normocephalic and Yes atraumatic Ears: hearing grossly normal bilaterally Eyes Other: Patient reports to be legally blind General: appearance normal, both eyes and all related structures Neck Neck: Yes normal visual inspection and Yes trachea midline Chest Chest palpation & inspection: normal inspection of the chest Resp Effort & Inspection: normal respiratory effort and able to speak in complete sentences Cardio Rate: regular rate GI Inspection: Yes normal to inspection General: Yes no CVA tenderness Back/Spine/Pelvis Back: no CVA tenderness Skin General skin exam: no rashes or lesions noted Neuro General: patient oriented x3 Extrem General: Yes normal to inspection Psych Appearance: grossly normal and well kempt Mental Status: mental status grossly normal Speech and movement: Normal speech and movement present and Clear speech present Affect: normal affect Attitude: cooperative Thought process: Normal thought process present Thought content: Normal thought content present Insight: Fair insight present (Psych) Judgement: Fair judgement present (Psych) Office Procedures Post Void Residual Post Residual Void Post Void Residual (PVR): 12 23382-Hssw Void Residual by ultrasound Results AMB Urinalysis, Automated UA Leukoctes 0 Portia/uL Last Edit by [employer] on 05/02/23 11:11 UA Nitrite Negative Last Edit by [employer] on 05/02/23 11:11 UA Urobilinogen 0.2 mg/dL Last Edit by [employer] on 05/02/23 11:11 UA Protein 0 mg/dL Last Edit by [employer] on 05/02/23 11:11 UA pH 6.0 Last Edit by [employer] on 05/02/23 11:11 UA Blood 0 Nic/uL Last Edit by [employer] on 05/02/23 11:11 UA Specific [place] 1.020 Last Edit by [employer] on 05/02/23 11:11 UA Ketone Negative Last Edit by [employer] on 05/02/23 11:11 UA Bilirubin 0 mg/dL Last Edit by [employer] on 05/02/23 11:11 UA Glucose 0 mg/dL Last Edit by [employer] on 05/02/23 11:11 Results Reviewed Results Reviewed: Laboratory Last Values Urine pH (Auto) 6.0 05/02/23 10:56 Specific [place] (Auto) 1.020 05/02/23 10:56 Urine Protein (Auto) 0 mg/dL 05/02/23 10:56 Glucose (UA)(Auto) 0 mg/dL 05/02/23 10:56 Urine Ketones (Auto) Negative 05/02/23 10:56 Urine Blood (Auto) 0 Nic/uL 05/02/23 10:56 Urine Nitrite (Auto) Negative 05/02/23 10:56 Urine Bilirubin (Auto) 0 mg/dL 05/02/23 10:56 Urine Urobilinogen (Auto) 0.2 mg/dL 05/02/23 10:56 Leukocyte Esterase (Auto) 0 Portia/uL 05/02/23 10:56 Date of Service: 04/01/23 Procedure(s): US retroperitoneal comp FINDINGS: RIGHT KIDNEY: 9.9 x 4.6 x 5.9 cm (SAG x AP x TRV). No hydronephrosis. No renal calculi. Renal cortical thickness is normal. Limited visualization. LEFT KIDNEY: 13.0 x 5.2 x 5.4 cm (SAG x AP x TRV). No hydronephrosis. No renal calculi. Renal cortical thickness is normal. Limited visualization. BLADDER: Moderately distended. Bilateral ureteral jets are demonstrated. Prevoid bladder volume is 152 mL. Postvoid bladder volume is 0 mL. Prostate volume 46 mL. IMPRESSION: 1. No hydronephrosis. No renal calculi. 2. Prostate volume 46 mL. Assessment & Plan Assessment & Plan (1) Urinary frequency: Code(s): R35.0 - Frequency of micturition (2) Nocturia: Code(s): R35.1 - Nocturia (3) Incomplete bladder emptying: Code(s): R33.9 - Retention of urine, unspecified (4) BPH (benign prostatic hyperplasia): Code(s): N40.0 - Benign prostatic hyperplasia without lower urinary tract symptoms Plan In office urinalysis results reviewed with the patient today; as noted above. PVR 12 mL. Continue 5 mg of terazosin daily as prescribed. Discussed possible near future trial finasteride given borderline enlarged prostate. Discussed importance of timed/scheduled voiding to assist with decreasing episodes of incontinence related to decreased mobility. Discussed bladder triggers/irritants. Discussed importance of weight loss in relation of increased weight on bladder with lower urinary tract symptoms. Discussed possible near future in office cystoscopy and or urodynamics for further assessment and evaluation if symptoms reoccur arise and or worsen. Will obtain PSA in 6 months. Follow-up in 6 months; or sooner with any issues, concerns, and or questions. Orders: Orders AMB Urinalysis Automated Today Z13.9 - Encounter for screening, unspecified Prostate Specific Antigen 6 Months N40.0 - Benign prostatic hyperplasia without lower urinary tract symptoms, R33.9 - Retention of urine, unspecified, R35.0 - Frequency of micturition, R35.1 - Nocturia AMB Post Void Residual by ultrasound Today R35.0 - Frequency of micturition Medications: Changed From terazosin 5 mg PO BEDTIME 30 days 30 caps 1RF N40.1 - Benign prostatic hyperplasia with lower urinary tract symptoms, R35.0 - Frequency of micturition To terazosin 5 mg PO BEDTIME 90 days 90 caps 1RF N40.1 - Benign prostatic hyperplasia with lower urinary tract symptoms, R35.0 - Frequency of micturition Patient Instructions: The patient had an opportunity to ask questions regarding the treatment plan. All questions were answered. Physical exam, labs, and imaging were discussed and reviewed in detail. As well as risks, benefits, and discussion of treatment choices. No major barriers to understanding were identified. The patient expressed understanding and agreement with the above treatment plan. The patient was made aware they should contact our office by phone for worsening of their current condition, the appearance of new symptoms, or with any questions or concerns. Compliance is encouraged with any medications and follow up testing that is ordered. It is a privilege to be allowed the opportunity to participate in? your urological care.? Again, if you have any questions or concerns If you have any questions or concerns please do not hesitate to contact me. The office is [phone]. This note is constructed using voice recognition software. While every effort has been made to ensure accuracy processing lead errors may have been included. Yours sincerely, LANIE Weaver Coding Level of Care Code Est Pt Level 3 (62794) Diagnoses Urinary frequency R35.0 Nocturia R35.1 Incomplete bladder emptying R33.9 BPH (benign prostatic hyperplasia) N40.0 CPT Codes Post Residual Void - PVR CPT Code: 94996-Bbpe Void Residual by ultrasound ([id number])
== END 2023-05-02 11:30 | disposition home or self-care (01) ==
PROVIDERS: PCP Nurse Practitioner Family; Visit Provider Nurse Practitioner Family
DX: R35.0 Frequency of micturition (principal); R35.1 Nocturia; R33.9 Retention of urine, unspecified; N40.0 Benign prostatic hyperplasia without lower urinary tract symptoms
CPT/HCPCS: 99213

== ENCOUNTER → 2023-05-02 11:38 | Outpatient (REF) | payer MEDICARE, MEDICAID, SELFPAY | LOC: HO.SL 11:38 | PROVIDERS: PCP Nurse Practitioner Family; Visit Provider Nurse Practitioner Family | DX: G47.33 Obstructive sleep apnea (adult) (pediatric) (principal); R06.83 Snoring; R40.0 Somnolence; R35.1 Nocturia; R53.83 Other fatigue | CPT/HCPCS: 51798; 81003; 95806; 99212 ==

== ENCOUNTER → 2023-05-02 12:56 | Outpatient (BNV) | payer MEDICARE, MEDICAID, SELFPAY | PROVIDERS: PCP Nurse Practitioner Family; Visit Provider Internal Medicine | DX: G47.33 Obstructive sleep apnea (adult) (pediatric) (principal) | CPT/HCPCS: 95806 ==

== ENCOUNTER 2023-05-03 07:50 | Outpatient (AMB) | payer MEDICARE, MEDICAID, SELFPAY ==
[2023-05-03 07:55] VITALS: BMI 39.5
--- NOTE | 2023-05-03 07:55 | MHC.OFFVIS ---
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 Patient reports his pain has been going on for about 10 years and is a 7 on the 1-10 pain scale. He states his Right is worse, he did have a Right femur fx in 1975. He reports he has used tylenol, ibuprofen, tramadol, pain reliving creams, braces and injections with mild relief. He wishes to hold off on total knee replacement surgery for as long as possible. He has done physical therapy exercises which aggravated his pain. The patient states that for the last year his bilateral knees will give out several times per day. He used to have knee braces which gave him fairly good stability. He does walk with a cane. Allergies Seasonal Allergies Allergy (Intermediate, Verified 05/03/23 08:02) Runny Nose Medication List - Last Reconciled 05/03/23 by Marvin Mcelroy MD blood pressure monitor As directed diaper,brief,adult,disposable (Select Disposable Briefs) As directed 4 daily/ 120 per month; pt requesting pull ups hydrochlorothiazide 25 mg PO DAILY lisinopril 30 mg PO DAILY omeprazole 20 mg PO BID terazosin 5 mg PO BEDTIME 90 days tramadol 25 mg (1/2 x 50 mg) PO DAILY PRN [facility] Medical History (Updated 05/03/23 @ 08:46 by Marvin Mcelroy MD) Morbid obesity with BMI of 45.0-49.9, adult Hypertensive emergency Encounter to establish care Herniated lumbar disc without myelopathy Arthritis of right knee BPH (benign prostatic hyperplasia) Major depression, recurrent Hypertension Macular degeneration Surgical History (Updated 05/03/23 @ 08:05 by Perla Medina CMA) Hx of hand surgery History of dental surgery History of colonoscopy History of retinal detachment Family History Mother No problems noted. Father No problems noted. Social History Housing: Apartment Alcohol intake: current Alcohol intake frequency: holidays/special occasions only Patient Tobacco Use Status: Former Tobacco user Tobacco use type: Cigarette e-Cigarette/Vaping Use: Never Used Second Hand Smoke Exposure: No service: No Current occupational status: retired Cognitive needs: Yes (cane) Hearing needs: Yes (hearing aide) Vision needs: Yes Physical Exam Vital Signs: BMI result Body Mass Index 39.5 Const Other: Well-nourished well-developed very friendly male awake alert and oriented x3 in no acute distress Extrem Other: Bilateral lower extremity examination shows good capillary refill, no skin lesions noted, normal sensation light touch Bilateral knee examination shows minimal effusions, palpable crepitus with range of motion, pain with range motion, range of motion from -3 degrees to 115 degrees, no instability Office Procedures Joint Injection/Drain Joint Injection/Drain Primary Site: left knee Prep: site was prepped using aseptic technique Injected: 40 mg of, DepoMedrol and 1% plain lidocaine Procedure: The patient tolerated the procedure well Coding 90424 - Large joint Procedure code (CPT) selection complete Joint Injection/Drain Joint Injection/Drain Primary Site: right knee Prep: site was prepped using aseptic technique Injected: 40 mg of, DepoMedrol and 1% plain lidocaine Procedure: The patient tolerated the procedure well Coding 65045 - Large joint Procedure code (CPT) selection complete Results Reviewed Results Reviewed: X-rays of the patient's right knee taken today show severe degenerative joint disease with grade 4 [id number] arthritis, subchondral sclerosis, osteophyte formation, no acute bony abnormalities X-rays of the patient's left knee taken today show moderate to severe joint space narrowing, subchondral sclerosis, no acute bony abnormalities Assessment & Plan Assessment & Plan (1) Arthritis of right knee: Code(s): M17.11 - Unilateral primary osteoarthritis, right knee (2) Arthritis of left knee: Code(s): M17.12 - Unilateral primary osteoarthritis, left knee Plan Mr. Bui presents with bilateral knee pains due to degenerative joint disease. I had a lengthy discussion with the patient regarding the treatment options. He wishes to hold off on total knee replacement surgery for as long as possible. I agree with this plan. The risks and benefits of bilateral knee cortisone injections were discussed at length with the patient. The patient wished to proceed. He tolerated the injections well. Because of his mechanical symptoms I also had him fitted for bilateral knee braces. I do feel that the knee braces are a medical necessity to help prevent future falls. The patient will follow up with me on an as-needed basis should his symptoms not plateau at an unacceptable level over the next few months. Feel free to call me at any time should questions regarding his orthopedic management arise. Thank you very much for asking me to see this very friendly gentleman. I spent 22 minutes in reviewing the patient's records and imaging studies, seeing the patient and documenting in the medical record. Orders: Orders AMB Joint Injection/Aspiration Today M17.11 - Unilateral primary osteoarthritis, right knee AMB Joint Injection/Aspiration Today M17.12 - Unilateral primary osteoarthritis, left knee Coding Level of Care Code New Pt Level 2 (39058) Diagnoses Arthritis of right knee M17.11 Arthritis of left knee M17.12 CPT Codes Coding - 92648 Large joint: 74990 - Large joint ([id number]) Coding - 98238 Large joint: 19401 - Large joint ([id number])
== END 2023-05-03 08:47 | disposition home or self-care (01) ==
PROVIDERS: PCP Nurse Practitioner Family; Visit Provider Orthopaedic Surgery
DX: M17.0 Bilateral primary osteoarthritis of knee (principal)
CPT/HCPCS: 20610; 99203

== ENCOUNTER 2023-05-03 15:13 | Outpatient (REF) | payer MEDICARE, MEDICAID, SELFPAY ==
--- NOTE | ~2023-05-03 | XR_ITS ---
EXAMINATION: XR BILATERAL KNEES CLINICAL INFORMATION: Pain in bilateral knees. COMPARISON: None available. TECHNIQUE: 3 views of each knee. FINDINGS: Right Knee: The bones are diffusely demineralized. Moderate suprapatellar effusion. Tricompartmental osteophytes. Tricompartmental space narrowing. Left Knee: Bones are diffusely demineralized. Trace suprapatellar effusion. Tricompartmental osteophytes. Narrowing of medial and patellofemoral compartments. XR/XR knee LT 3V IMPRESSION: Moderate degenerative changes bilateral knees.
--- NOTE | ~2023-05-03 | XR_ITS ---
EXAMINATION: XR BILATERAL KNEES CLINICAL INFORMATION: Pain in bilateral knees. COMPARISON: None available. TECHNIQUE: 3 views of each knee. FINDINGS: Right Knee: The bones are diffusely demineralized. Moderate suprapatellar effusion. Tricompartmental osteophytes. Tricompartmental space narrowing. Left Knee: Bones are diffusely demineralized. Trace suprapatellar effusion. Tricompartmental osteophytes. Narrowing of medial and patellofemoral compartments. XR/XR knee RT 3V IMPRESSION: Moderate degenerative changes bilateral knees.
== END 2023-05-03 15:14 | disposition home or self-care (01) ==
LOC: HO.HOSX 15:13
PROVIDERS: Visit Provider Orthopaedic Surgery
DX: M17.0 Bilateral primary osteoarthritis of knee (principal)
CPT/HCPCS: 20610; 73562; 99202; J1020

== ENCOUNTER 2023-06-16 08:02 | Outpatient (AMB) | payer MEDICARE, MEDICAID, SELFPAY ==
[2023-06-16 08:11] VITALS: BP 124/78; PULSE 89; O2SAT 97; BMI 41.1
--- NOTE | 2023-06-16 08:11 | A.OFFPC_ITS ---
Vital Signs 06/16/23 08:11 Height 5 ft 3 in Weight 232 lb BMI 41.1 BP 124/78 Blood Pressure Location Lt brachial Position Sitting Pulse 89 Pulse Source Pulse Oximeter Pulse Oximetry (%) 97 Oxygen Delivery Method Room Air Intake Visit Reasons: 3mth f/u Allergies Seasonal Allergies Allergy (Intermediate, Verified 06/26/23 20:07) Runny Nose Medication List - Last Reconciled 06/26/23 by Sonny Nielsen MD blood pressure monitor As directed cholecalciferol (vitamin D3) 25 mcg PO DAILY diaper,brief,adult,disposable (Select Disposable Briefs) As directed 4 daily/ 120 per month; pt requesting pull ups size LARGE hydrochlorothiazide 25 mg PO DAILY lisinopril 30 mg PO DAILY omeprazole 20 mg PO BID terazosin 5 mg PO BEDTIME 90 days tramadol 50 mg PO BID PRN Tobacco use date assessed: 02/28/23 Fall risk assessment: No Falls in past year Last assessed Fall Risk: 06/16/23 Dental Screening Dental Screen Date: 02/28/23 HPI 3mth f/u HPI Details 68 y year old presents to the office to discuss his chronic medical condition. Patient is at baseline state of health. Compliant with medications. Able to function and do all activities of daily living. [facility] Medical History Morbid obesity with BMI of 45.0-49.9, adult Hypertensive emergency Encounter to establish care Herniated lumbar disc without myelopathy Arthritis of right knee BPH (benign prostatic hyperplasia) Major depression, recurrent Hypertension Macular degeneration Surgical History Hx of hand surgery History of dental surgery History of colonoscopy History of retinal detachment Family History Mother No problems noted. Father No problems noted. Social History Housing: Apartment Alcohol intake: current Alcohol intake frequency: holidays/special occasions only Patient Tobacco Use Status: Former Tobacco user Tobacco use type: Cigarette e-Cigarette/Vaping Use: Never Used Second Hand Smoke Exposure: No service: No Current occupational status: retired Cognitive needs: Yes (cane) Hearing needs: Yes (hearing aide) Vision needs: Yes Questionnaire PHQ-9 Over the last 2 weeks, how often have you been bothered by any of the following problems? 1. Little interest or pleasure in doing things: not at all 2. Feeling down, depressed, or hopeless: not at all 3. Trouble falling or staying asleep, or sleeping too much: not at all 4. Feeling tired or having little energy: not at all 5. Poor appetite or overeating: not at all 6. Feeling bad about yourself - or that you are a failure or have let yourself or your family down: not at all 7. Trouble concentrating on things, such as reading the newspaper or watching television: not at all 8. Moving or speaking so slowly that other people could have noticed. Or the opposite - being so fidgety or restless that you have been moving around a lot more than usual: not at all 9. Thoughts that you would be better off or of hurting yourself in some way: not at all Total score: 0 Depression Screening Interpretation: Negative Depression Screening Done: Yes Source: Developed by Drs. Jam Odell, Barbara Tim, Home Nunn and colleagues, with an educational harini from [employer]. Thrive Questionnaire Date Thrive assessed: 02/28/23 AUDIT C Alcohol Use Questionnaire (AUDIT-C) 1. How often do you have a drink containing alcohol?: Never Total Score: 0 SHANE-7 AMB Questionnaire SHANE-7 Date SHANE - 7 assessed: 02/28/23 Source: Developed by Drs. Jam Odell, Home Bojorquez and colleagues, with an educational harini from [employer]. Physical exam (Primary Care) Vital Signs: Last Vital Signs Pulse 89 06/16/23 08:11 BP 124/78 06/16/23 08:11 Pulse Ox 97 06/16/23 08:11 Oxygen Delivery Method Room Air 06/16/23 08:11 BMI result Body Mass Index 41.1 Tobacco/Smoking Status: Tobacco use Status Tobacco use date assessed 02/28/23 06/16/23 08:12 Patient Tobacco Use Status Former Tobacco user 06/16/23 08:12 Tobacco use type Cigarette 06/16/23 08:12 e-Cigarette/Vaping Use Never Used 06/16/23 08:12 PHQ-9: PHQ-9 Score PHQ-9: Total score 0 06/16/23 08:12 Depression Screening Interpretation: Negative Thrive Assessment: Date of Thrive Assessment Date Thrive assessed 02/28/23 06/16/23 08:12 Const General: cooperative and healthy appearing Nutritional Appearance: well nourished Orientation/consciousness: patient oriented x3 Limitations: no limitations HENMT Head: Yes normal to inspection Eyes General: appearance normal, both eyes and all related structures Neck Neck: Yes normal visual inspection Chest Chest palpation & inspection: normal palpation of entire chest wall Resp Effort & Inspection: normal respiratory effort Neuro General: patient oriented x3 Assessment and Plan Assessment & Plan (1) Hypertension: Code(s): I10 - Essential (primary) hypertension Qualifiers: Hypertension type: primary hypertension Qualified Code(s): I10 - Essential (primary) hypertension Plan: Blood pressure is in range. Continue medications at same dosage. Coding Level of Care Code Est Pt Level 3 (10150) Diagnoses Primary hypertension I10 Hypertension type: primary hypertension
== END 2023-06-16 08:50 | disposition home or self-care (01) ==
PROVIDERS: PCP Internal Medicine; Visit Provider Internal Medicine
DX: I10 Essential (primary) hypertension (principal)
CPT/HCPCS: 99213